=== PATIENT | female | born 1950 | race African-American/Black ===

== ENCOUNTER 2021-12-13 11:22 | Day surgery (SDC) | payer OTHER ==
[2021-12-13] MEDS ORDERED: FERRIC CARBOXYMALTOSE 750 MG in SODIUM CHLORIDE 250 ML IVPB ONE (12:00)
[2021-12-13 12:47] VITALS: BP 101/50; PULSE 58; TEMP 98.1
== END 2021-12-13 12:58 | disposition home or self-care (01) ==
LOC: FINFUSION 11:22 → FM/S 11:26 → FINFUSION 12:58
PROVIDERS: ATTEND Family Medicine
PROC: 3E033GC Introduction of Other Therapeutic Substance into Peripheral Vein, Percutaneous Approach (ICD-10-PCS; principal; 2021-12-13)
DX: D50.9 Iron deficiency anemia, unspecified (principal)
CPT/HCPCS: 96365; J1439

== ENCOUNTER 2021-12-20 10:53 | Day surgery (SDC) | payer OTHER ==
[2021-12-20 11:05] VITALS: BP 131/56; PULSE 86; RESP 18; TEMP 98
[2021-12-20] MEDS ORDERED: FERRIC CARBOXYMALTOSE 750 MG in SODIUM CHLORIDE 250 ML IVPB ONE (11:30)
== END 2021-12-20 12:57 | disposition home or self-care (01) ==
LOC: FINFUSION 10:53 → FM/S 10:53 → FINFUSION 12:57
PROVIDERS: ATTEND Family Medicine
PROC: 3E033GC Introduction of Other Therapeutic Substance into Peripheral Vein, Percutaneous Approach (ICD-10-PCS; principal; 2021-12-20)
DX: D50.9 Iron deficiency anemia, unspecified (principal)
CPT/HCPCS: 96365; J1439